=== PATIENT | male | born 1970 | race Caucasian/White ===

== ENCOUNTER 2017-10-09 23:00 | Emergency (ER) | payer SELFPAY ==
[2017-10-09] MEDS: IPRATRPIUM/ALBUTEROL 0.5/2.5MG 3 ML NEBU. NEB ×2 (23:26→23:45)
[2017-10-09 23:53] LABS: ADD MAN DIFF? NO
[2017-10-09 23:55] LABS: BASO # 0.1 x10^3/uL (0.0-0.2); BASO % 1 % (0-3); EOS # 0.2 x10^3/uL (0.0-0.7); EOS % 2 % (0-3); HEMATOCRIT 40.5 % (39.0-53.0); HEMOGLOBIN 13.7 g/dL (13.0-17.5); LYMPH # 2.9 x10^3/uL (1.0-4.8); LYMPH % 30 % (24-48); MEAN CORPUSCULAR HEMOGLOBIN 30 pg (25-35); MEAN CORPUSCULAR HGB CONC 34 g/dL (31-37); MEAN CORPUSCULAR VOLUME 88 fL (79-100); MONO # 0.9 x10^3/uL (0.0-1.1); MONO % 10 % (0-9); NEUT # 5.5 x10^3uL (1.8-7.7); NEUT % 58 % (31-73); PLATELET COUNT 157 x10^3/uL (140-400); RED BLOOD COUNT 4.61 x10^6/uL (4.30-5.70); WHITE BLOOD COUNT 9.5 x10^3/uL (4.0-11.0)
[2017-10-10 00:04] LABS: ANION GAP 7 (6-14); BLOOD UREA NITROGEN 21 mg/dL (8-26); BUN/CREATININE RATIO 18 (6-20); CALCIUM 8.5 mg/dL (8.5-10.1); CARBON DIOXIDE 28 mmol/L (21-32); CHLORIDE 106 mmol/L (98-107); CREATININE 1.2 mg/dL (0.7-1.3); GFR 64.4; GLUCOSE 128 mg/dL (70-99); POTASSIUM 3.9 mmol/L (3.5-5.1); SODIUM 141 mmol/L (136-145)
[2017-10-10] MEDS: methylPREDNISolone SOD SUCC PF 125 MG/2 ML VIAL. IV (00:04)
[2017-10-10 00:10] LABS: ALBUMIN 3.4 g/dL (3.4-5.0); ALBUMIN/GLOBULIN RATIO 1.1 (1.0-1.7); ALK PHOS 78 U/L (46-116); ALT (SGPT) 35 U/L (16-63); AST (SGOT) 23 U/L (15-37); TOTAL BILIRUBIN 0.2 mg/dL (0.2-1.0); TOTAL PROTEIN 6.4 g/dL (6.4-8.2)
[2017-10-10 00:12] LABS: TROPONINI < 0.017 ng/mL (0.000-0.055)
[2017-10-10 00:34] LABS: CKMB MASS 2.5 ng/mL (0.0-3.6); CREATINE KINASE 247 U/L (39-308)
[2017-10-10 00:34] LABS: NT-PRO BNP 623 pg/mL (0-124)
== END 2017-10-10 01:42 | disposition home or self-care (01) ==
LOC: ER 10-10 01:42
DX: R06.00 Dyspnea, unspecified (principal); R06.2 Wheezing; I50.9 Heart failure, unspecified; F17.210 Nicotine dependence, cigarettes, uncomplicated
CPT/HCPCS: 36415; 71046; 80053; 82553; 83880; 84484; 85025; 93005; 94640; 96374; 99285-25; J2930; J7620

== ENCOUNTER 2017-10-10 23:21 | Emergency (ER) | payer SELFPAY | END 2017-10-10 23:28 | disposition left against medical advice (07) | LOC: ER 23:21 | DX: R10.13 Epigastric pain (principal); Z53.21 Procedure and treatment not carried out due to patient leaving prior to being seen by health care provider ==

== ENCOUNTER 2021-03-10 06:09 | Emergency (ER) | payer OTHER ==
[~2021-03-10] VITALS: Ht 175.3 cm; Wt 102.0 kg
[~2021-03-10 06:09] MED LIST: ALBU2.5V8 INH; AZIT250T6 PO; CARV6.2511 PO; FURO-68 PO; FURO80TA72 PO; LISI10TA16 PO; POTA-121 PO; POTA20TA84 PO; PRED20TA PO
--- NOTE | 2021-03-10 07:41 | RAD ---
XR PELVIS 1-2V History: Reason: fell, pelvis pain / Spl. Instructions: / History: Technique: AP view the pelvis. Comparison: None. Findings: Bilateral hip arthroplasties. No dislocation on AP view. No acute fracture. Postop changes lumbar spi ne. Mild pubic symphysis DJD. Impression: 1. No acute osseous abnormality. Electronically signed by: Yuan Menendez DO (03/10/2021 7:39 AM) [facility]
--- NOTE | 2021-03-10 07:43 | RAD ---
XR LUMBAR SPINE 2-3V History: Reason: lower back pain, fell / Spl. Instructions: / History: Technique: 3 views lumbar spine. Comparison: None. Findings: Postoperative changes L5-S1 posterior stabilization and interbody fusion. Normal vertebral body heigh t. No acute fracture. Multilevel degenerative disc changes of the thoracic lumbar spine most prominen t T9-T10 and T10-T11. Impression: 1. No acute osseous abnormality. 2. Multilevel thoracolumbar spondylosis. 3. Postoperative changes L5-S1. Electronically signed by: Yuan Menendez DO (03/10/2021 7:41 AM) [facility]
--- NOTE | 2021-03-10 07:45 | PHYS DOC ---
Past Medical History Past Medical History: CHF, COPD Additional Past Medical Histor: CARDIAC DISRYTHMIA, PACEMAKER Past Surgical History: Other Additional Past Surgical Histo: LOW BACK, BILATERAL HIP REPLACEMENT Smoking Status: Current Every Day Smoker Alcohol Use: None Drug Use: None General Adult EDM: Chief Complaint: BACK PAIN OR INJURY HPI: HPI: Patient is a 51 year old male who presented to the ER today for evaluation of lower back pain. Patient said he was walking down his stair, slipped at the last two steps, fell down on his buttock, having lower back pain and pelvic pain. He was able to get up and walk only with pain. It happened last night. Patient denies any bowel or bladder incontinence. Patient denies any weakness or numbness in his lower extremities. Patient denies any abdominal pain, no nausea vomiting. Patient has history of bilateral hip replacement, history of lower back surgery so he is concerned about it. Patient also complained of an ingrown hair infection on the left proximal thigh area for 2 days. Review of Systems: Review of Systems: Constitutional: Denies fever or chills. [] Eyes: Denies change in visual acuity. [] HENT: Denies nasal congestion or sore throat. [] Respiratory: Denies cough or shortness of breath. [] Cardiovascular: Denies chest pain or edema. [] GI: Denies abdominal pain, nausea, vomiting, bloody stools or diarrhea. [] : Denies dysuria. [] Musculoskeletal: Positive for low back pain, pelvic pain. Integument: Positive for a skin infection on left inner thigh Neurologic: Denies headache, focal weakness or sensory changes. [] Endocrine: Denies polyuria or polydipsia. [] Lymphatic: Denies swollen glands. [] Psychiatric: Denies depression or anxiety. [] Heart Score: C/O Chest Pain: N/A Risk Factors: Risk Factors: DM, Current or recent (<one month) smoker, HTN, HLP, family history of CAD, obesity. Risk Scores: Score 0 - 3: 2.5% MACE over next 6 weeks - Discharge Home Score 4 - 6: 20.3% MACE over next 6 weeks - Admit for Clinical Observation Score 7 - 10: 72.7% MACE over next 6 weeks - Early Invasive Strategies Allergies: Allergies: Allergies Coded Allergies Type Severity Reaction Last Updated Verified No Known Drug Allergies 10/09/17 No Physical Exam: PE: Constitutional: Well developed, well nourished, no acute distress, non-toxic appearance. [] HENT: Normocephalic, atraumatic, bilateral external ears normal, oropharynx moist, no oral exudates, nose normal. [] Eyes: PERRLA, EOMI, conjunctiva normal, no discharge. [] Neck: Normal range of motion, no tenderness, supple, no stridor. [] Cardiovascular:Heart rate regular rhythm, no murmur [] Lungs & Thorax: Bilateral breath sounds clear to auscultation [] Abdomen: Bowel sounds normal, soft, no tenderness, no masses, no pulsatile masses. [] Skin: Warm, dry, small area of erythema and induration on left inner thigh area. Back: There is tenderness to palpation at L4/L5 AREA. NO BONY STEP OFF. Extremities: No tenderness, no cyanosis, no clubbing, ROM intact, no edema. [] Neurologic: Alert and oriented X 3, normal motor function, normal sensory function, no focal deficits noted. [] Psychologic: Affect normal, judgement normal, mood normal. [] Current Patient Data: Vital Signs: Vital Signs Date Time Temp Pulse Resp B/P (MAP) Pulse Ox O2 Delivery O2 Flow Rate FiO2 03/10/21 06:43 98.5 99 16 132/86 (101) 99 Room Air 98.5 EKG: EKG: [] Radiology/Procedures: Radiology/Procedures: [][facility] [address] [place] [address] IMAGING REPORT Signed PATIENT: RAFAELA SOTOUNT: [id number] : 1970 LOCATION: ER AGE: 51 SEX: M EXAM STATUS: REG ER ORD. PHYSICIAN: MAGGIE FLEMING DO REASON: fell, pelvis pain PROCEDURE: PELVIS XR PELVIS 1-2V History: Reason: fell, pelvis pain / Spl. Instructions: / History: Technique: AP view the pelvis. Comparison: None. Findings: Bilateral hip arthroplasties. No dislocation on AP view. No acute fracture. Postop changes lumbar spine. Mild pubic symphysis DJD. Impression: 1. No acute osseous abnormality. Electronically signed by: Yuan Menendez DO (03/10/2021 7:39 AM) [employer] DICTATED and SIGNED BY: YUAN MENENDEZ DO DATE: 03/10/21 [id number] [facility] [address] [place] [address] IMAGING REPORT Signed PATIENT: RAFAELA SOTOCOUNT: [id number] : 1970 LOCATION: ER AGE: 51 SEX: M EXAM STATUS: REG ER ORD. PHYSICIAN: MAGGIE FLEMING DO REASON: lower back pain, fell PROCEDURE: LUMBAR SPINE 2-3V XR LUMBAR SPINE 2-3V History: Reason: lower back pain, fell / Spl. Instructions: / History: Technique: 3 views lumbar spine. Comparison: None. Findings: Postoperative changes L5-S1 posterior stabilization and interbody fusion. Normal vertebral body height. No acute fracture. Multilevel degenerative disc changes of the thoracic lumbar spine most prominent T9-T10 and T10-T11. Impression: 1. No acute osseous abnormality. 2. Multilevel thoracolumbar spondylosis. 3. Postoperative changes L5-S1. Electronically signed by: Yuan Menendez DO (03/10/2021 7:41 AM) [employer] DICTATED and SIGNED BY: YUAN MENENDEZ DO DATE: 03/10/21 [id number] 0 Course & Med Decision Making: Course & Med Decision Making Pertinent Labs and Imaging studies reviewed. (See chart for details) Patient is a 51-year-old male who present to ER due to low back pain after he fell last night. X-ray of pelvis and lumbar spine did not show any acute problem. Patient does have an ingrowing hair infection on his left inner thigh area, no abscess formation. Patient will be discharged home with pain medication antibiotic. Dragon Disclaimer: Dragon Disclaimer: This electronic medical record was generated, in whole or in part, using a voice recognition dictation system. Departure Departure Impression: Primary Impression: Back pain due to injury Additional Impression: Cellulitis Disposition: HOME / SELF CARE / HOMELESS Condition: STABLE Referrals: RAHUL JULIO MD (PCP) Follow up with your doctor as needed this week. Patient Instructions: Back Injury Prevention, Back Pain, Adult, Cellulitis Additional Instructions: Thank you for visiting our Emergency Department. We appreciate you trusting us with your care. If any additional problems come up don't hesitate to return to visit us. Please follow up with your primary care provider so they can plan additional care if needed and know about the problem that you had. If symptoms worsen come back to the Emergency Department. Any concerning symptoms that start such as chest pain, shortness of air, weakness or numbness on one side of the body, running high fevers or any other concerning symptoms return to the ER. Scripts Hydrocodone/Acetaminophen (Hydrocodone-Acetamin 5-325 mg) 1 Each Tablet 1 EACH PO Q6HRS PRN for PAIN, #12 TAB Prov: MAGGIE FLEMING DO 03/10/21 Sulfamethoxazole/Trimethoprim (BACTRIM DS TABLET) 1 Each Tablet 1 TAB PO BID for 10 Days, #20 TAB 0 Refills Prov: MAGGIE FLEMING DO 03/10/21 MAGGIE FLEMING DO Mar 10, 2021 07:45
[2021-03-10] MEDS ORDERED: SULF1TAB24 PO (07:59)
[2021-03-10] MEDS ORDERED: HYDR-2759 PO (07:59)
[2021-03-10 08:10] VITALS: BP 156/96
== END 2021-03-10 08:11 | disposition home or self-care (01) ==
LOC: ER 06:09
DX: S39.92XA Unspecified injury of lower back, initial encounter (principal); L03.312 Cellulitis of back [any part except buttock and flank]; R10.2 Pelvic and perineal pain; J44.9 Chronic obstructive pulmonary disease, unspecified; F17.200 Nicotine dependence, unspecified, uncomplicated; Z86.79 Personal history of other diseases of the circulatory system; W10.8XXA Fall (on) (from) other stairs and steps, initial encounter; Y93.01 Activity, walking, marching and hiking; Y92.89 Other specified places as the place of occurrence of the external cause; Y99.8 Other external cause status
CPT/HCPCS: 72100; 72170; 99284

== ENCOUNTER 2021-03-23 20:56 | Emergency (ER) | payer OTHER ==
[~2021-03-23] VITALS: Ht 175.3 cm; Wt 101.0 kg
[~2021-03-23 20:56] MED LIST changes: +HYDR-2759 PO; +SULF1TAB24 PO
--- NOTE | 2021-03-23 21:04 | PHYS DOC ---
Past Medical History Past Medical History: CHF, COPD Additional Past Medical Histor: CARDIAC DISRYTHMIA, PACEMAKER Past Surgical History: Other Additional Past Surgical Histo: LOW BACK, BILATERAL HIP REPLACEMENT Smoking Status: Current Every Day Smoker Alcohol Use: None Drug Use: None General Adult HPI: HPI: Patient is a 51 year old male past medical history of coronary artery disease hypertension hyperlipidemia COPD presents with a chief complaint of shortness of breath and chest tightness. Patient states shortness of breath ongoing for 1 day progressively worse just prior to arrival. Patient states just prior to arrival he was laying down felt like he could not breathe. Patient states he has had subjective fevers runny stuffy nose cough with sputum production muscle aches and diarrhea. Patient is vaccinated against COVID-19 states he recently spent the holidays with his family out of town in [place]. Review of Systems: Review of Systems: Constitutional: Positive fever or chills. [] Eyes: Denies change in visual acuity. [] HENT: Positive nasal congestion Respiratory: Positive cough Positive shortness of breath. [] Cardiovascular: Positive chest pain denies edema. [] GI: Denies abdominal pain, Positive nausea, no vomiting, bloody stools Positive diarrhea. [] : Denies dysuria. [] Musculoskeletal: Denies back pain or joint pain. [] Integument: Denies rash. [] Neurologic: Denies headache, focal weakness or sensory changes. [] Endocrine: Denies polyuria or polydipsia. [] Lymphatic: Denies swollen glands. [] Psychiatric: Denies depression or anxiety. [] Heart Score: C/O Chest Pain: N/A Risk Factors: Risk Factors: DM, Current or recent (<one month) smoker, HTN, HLP, family histo ry of CAD, obesity. Risk Scores: Score 0 - 3: 2.5% MACE over next 6 weeks - Discharge Home Score 4 - 6: 20.3% MACE over next 6 weeks - Admit for Clinical Observation Score 7 - 10: 72.7% MACE over next 6 weeks - Early Invasive Strategies Allergies: Allergies: Allergies Coded Allergies Type Severity Reaction Last Updated Verified No Known Drug Allergies 10/09/17 No Physical Exam: PE: Constitutional: Well developed, well nourished, no acute distress, non-toxic appearance. [] HENT: Normocephalic, atraumatic, bilateral external ears normal, oropharynx moist, no oral exudates, nose normal. [] Eyes: PERRLA, EOMI, conjunctiva normal, no discharge. [] Neck: Normal range of motion, no tenderness, supple, no stridor. [] Cardiovascular:Heart rate regular rhythm, no murmur [] Lungs & Thorax: Bilateral breath sounds clear to auscultation [] Abdomen: Bowel sounds normal, soft, no tenderness, no masses, no pulsatile masses. [] Skin: Warm, dry, no erythema, no rash. [] Back: No tenderness, no CVA tenderness. [] Extremities: No tenderness, no cyanosis, no clubbing, ROM intact, no edema. [] Neurologic: Alert and oriented X 3, normal motor function, normal sensory function, no focal deficits noted. [] Psychologic: Affect normal, judgement normal, mood normal. [] EKG: EKG: [] Performed at 2058 Rate [address] elevation No ST depression No acute CO Radiology/Procedures: Radiology/Procedures: [] Course & Med Decision Making: Course & Med Decision Making Pertinent Labs and Imaging studies reviewed. (See chart for details) [] Patient was evaluated for chief complaint. Work-up consisted of laboratory analysis radiologic imaging and EKG. Results reviewed and discussed with patient. Chest x-ray pulmonary edema versus infiltrate. Patient was treated with Lasix Rocephin and Zithromax. Patient influenza and PCR Covid negative. Discussed hospitalization with the patient he declines. States he would prefer to go home. We will have patient double his Lasix dose for [address] patient on antibiotics Patient advised to return to the ER if symptoms persist get worse or any new concerning symptoms arise. Dragon Disclaimer: Dragon Disclaimer: This electronic medical record was generated, in whole or in part, using a voice recognition dictation system. Departure Departure Impression: Primary Impression: CHF (congestive heart failure) Additional Impressions: Person under investigation for COVID-19 Viral syndrome Disposition: HOME / SELF CARE / HOMELESS Condition: STABLE Referrals: RAHUL JULIO MD (PCP) Patient Instructions: Heart Disease Prevention-Brief, Upper Respiratory Infection, Adult, Viral Syndrome Scripts Furosemide (LASIX) 40 Mg Tablet 2 TAB PO BID for 5 Days, #20 TAB Prov: DENY MOHAN DO 03/23/21 Doxycycline Hyclate (DOXYCYCLINE HYCLATE) 100 Mg Tablet 1 TAB PO BID, #20 TAB Prov: DENY MOHAN DO 03/23/21 DENY MOHAN DO Mar 23, 2021 21:04
[2021-03-23] MEDS ORDERED: MORPHINE SULFATE 4 MG/ML INJ. IVP ONE (21:30)
[2021-03-23 21:32] LABS: BASO # 0.1 x10^3/uL (0.0-0.2); BASO % 1 % (0-3); EOS # 0.1 x10^3/uL (0.0-0.7); EOS % 1 % (0-3); HEMATOCRIT 41.9 % (39.0-53.0); HEMOGLOBIN 14.1 g/dL (13.0-17.5); LYMPH # 2.2 x10^3/uL (1.0-4.8); LYMPH % 14 % (24-48); MEAN CORPUSCULAR HEMOGLOBIN 30 pg (25-35); MEAN CORPUSCULAR HGB CONC 34 g/dL (31-37); MEAN CORPUSCULAR VOLUME 88 fL (79-100); MONO # 1.5 x10^3/uL (0.0-1.1); MONO % 9 % (0-9); NEUT # 11.9 x10^3/uL (1.8-7.7); NEUT % 76 % (31-73); PLATELET COUNT 206 x10^3/uL (140-400); RED BLOOD COUNT 4.77 x10^6/uL (4.30-5.70); WHITE BLOOD COUNT 15.8 x10^3/uL (4.0-11.0)
--- NOTE | 2021-03-23 21:34 | RAD ---
XR CHEST 1V Clinical Indication: Reason: cp / Comparison: AP chest October 11, 2017. Findings: There is left chest dual-chamber ICD. The cardiomediastinal silhouette is normal. There are minimal i nterstitial opacities in the bilateral lung bases that are similar to prior study. There is no pneumo thorax. No pleural effusion is appreciated. No acute bone abnormality. IMPRESSION: Minimal bibasilar interstitial opacities may be pulmonary edema or interstitial pneumonia or chronic. Electronically signed by: Antolin Robles MD (03/23/2021 9:32 PM) [facility]
[2021-03-23 21:42] LABS: CALCIUM 8.5 mg/dL (8.5-10.1); GFR 78.2; POTASSIUM 4.1 mmol/L (3.5-5.1)
[2021-03-23] MEDS ORDERED: ONDANSETRON PF 4 MG/2 ML VIAL. IVP PRN (21:45)
[2021-03-23] MEDS ORDERED: NITROGLYCERIN SUBLINGUAL 0.4 MG BOTTLE OF 25. SL PRN (21:45)
[2021-03-23] MEDS ORDERED: MORPHINE SULFATE 2 MG/ML INJ. IVP PRN (21:45)
[2021-03-23] MEDS ORDERED: cefTRIAXone IV Push 1 GM VIAL. IVP ONE (21:45)
[2021-03-23] MEDS ORDERED: ACETAMINOPHEN 325 MG TABLET. PO PRN (21:45)
[2021-03-23] MEDS ORDERED: AZITHRMYCN 500MG IVPB FOR OMNI 250 ML IV ONE (21:45)
[2021-03-23] MEDS ORDERED: FUROSEMIDE 40 MG/4 ML VIAL. IVP SCH (21:46)
[2021-03-23 21:47] LABS: ALBUMIN 3.4 g/dL (3.4-5.0); ALBUMIN/GLOBULIN RATIO 0.9 (1.0-1.7); TOTAL BILIRUBIN 0.3 mg/dL (0.2-1.0)
[2021-03-23 22:06] LABS: INFLUENZA A PATIENT NEGATIVE (NEGATIVE); INFLUENZA B PATIENT NEGATIVE (NEGATIVE)
[2021-03-23] MEDS ORDERED: FURO-68 PO (22:33)
[2021-03-23] MEDS ORDERED: DOXY100T PO (22:33)
[2021-03-23 23:34] VITALS: BP 164/88
--- NOTE | 2021-03-25 11:50 | EKG ---
[facility] [address] [place] [address] Test Date: 2021-03-23 Test Time: 20:59:20 Pat Name: RAFAELA SOTO Department: Room: ED HOLD 3 Gender: M Business Management Intern: : 1970 Requested By: DENY MOHAN Order Number: [id number] Reading MD: Avinash Brown MD Measurements Intervals [place] Rate: 102 P: 20 MI: 176 QRS: 70 QRSD: 106 T: 63 QT: 336 QTc: 442 Interpretive Statements SINUS TACHYCARDIA Electronically Signed On 03-29-2021 11:46:37 [employer] by Avinash Brown MD
== END 2021-03-24 00:02 | disposition home or self-care (01) ==
LOC: ER 20:56 → ED HOLD 21:42 → UNDOADMIN 21:42 → ED HOLD 22:54 → UNDODISIN 03-24 00:02 → ER 03-24 00:02
DX: B34.9 Viral infection, unspecified (principal); R07.89 Other chest pain; Z20.822 Contact with and (suspected) exposure to COVID-19; J44.9 Chronic obstructive pulmonary disease, unspecified; I25.10 Atherosclerotic heart disease of native coronary artery without angina pectoris; E78.5 Hyperlipidemia, unspecified; F17.200 Nicotine dependence, unspecified, uncomplicated; Z95.0 Presence of cardiac pacemaker
CPT/HCPCS: 36415; 71045; 80053; 83605; 84484; 85025; 87426; 87804; 93005; 96365; 96375; 99285; J0456; J0696; J1940; J2270; U0003; U0005